=== PATIENT | male | born 1980 | race Caucasian/White ===

== ENCOUNTER 2016-07-16 11:15 | Inpatient (IN) | payer MEDICARE, OTHER ==
[~2016-07-16] VITALS: Ht 177.8 cm; Wt 89.4 kg
[~2016-07-16 11:15] MED LIST: CEPH500C PO; INVEGA SUSTENNA IM; PARO20TA PO
[2016-07-16 12:02] VITALS: BP 182/88; PULSE 125; RESP 20; TEMP 97.7; O2SAT 99
[2016-07-16] MEDS ORDERED: LORazepam 1 MG TAB PO ONE (12:15)
[2016-07-16 12:18] LABS: BASOPHIL # 0.1 TH/MM3 (0-0.2); BASOPHIL % 0.8 % (0.0-2.0); EOSINOPHIL # 0.1 TH/MM3 (0-0.4); EOSINOPHIL % 0.7 % (0.0-4.0); HEMATOCRIT 45.9 % (39.0-51.0); HEMO FLAGS DIFF FINAL; LYMPH % 16.5 % (9.0-44.0); LYMPHOCYTE # 1.3 TH/MM3 (1.0-4.8); MEAN CELL VOLUME 87.3 FL (80.0-100.0); MEAN CORPUSCULAR HEMOGLOBIN 30.6 PG (27.0-34.0); MONO % 6.6 % (0.0-8.0); NEUT % 75.4 % (16.0-70.0); PLATELET COUNT 241 TH/MM3 (150-450); RED BLOOD COUNT 5.25 MIL/MM3 (4.50-5.90); WHITE BLOOD COUNT 7.9 TH/MM3 (4.0-11.0)
[2016-07-16 12:23] LABS: AMPHETAMINE, URINE NEG (NEG); BARBITURATES, URINE NEG (NEG); COCAINE, URINE NEG (NEG)
--- NOTE | 2016-07-16 12:29 | PD ---
HPI Chief Complaint: Psychiatric Symptoms Time Seen by Provider: 12:25 Travel History International Travel<30 days: No Contact w/Intl Traveler<30days: No Traveled to known affect area: No History of Present Illness HPI 36-year-old male that presents to the ED for evaluation of psychiatric illness. Patient was Cotter acted by police after apparently his been making suicidal statements and acting bizarre patient during my examination is very tearful. Per patient he suffered a history of "busted". Unclear as to why. Per patient he believes that he's been doing some "illegal stuff". Unclear as to what. He does appear to be very anxious. He does have a history of schizoaffective disorder and states that his been compliant with his medications but does seem to be not working. Per patient she's not been sleeping because of the concern that he might be busted. Per patient she's been smoking marijuana but believes that that might be something else and that as he is concerned that he might be getting another illegal drugs. He denies any IV drug abuse. He denies any chest pain or shortness of breath. No abdominal pain. No medical problems. Patient follows with psychiatrist. Symptoms appear to be mother. Appear to be worsening for the past couple weeks. Patient does appear to be very anxious and history is somewhat limited because of his anxiety at this time. PFSH Past Medical History Bipolar Disorder: Yes Anxiety: Yes Depression: Yes High Cholesterol: Yes Diabetes: No Diminished Hearing: No Hypertension: Yes Psychiatric: Yes (schizoaffective d/o) Immunizations Current: No (patient states 'I never get vaccines") Radiation Therapy: No Schizophrenia: Yes (SCHIZO/AFFECTIVE D/O) Triglycerides - High: Yes Past Surgical History Appendectomy: Yes (2009) Genitourinary Surgery: Yes (VASECTOMY 01/2008) Oral Surgery: Yes (WISDOM) Other Surgery: Yes (wisdom teeth removed) Social History Alcohol Use: Yes (Patient states that he has been sober for one month) Tobacco Use: Yes (2 packs a day) Substance Use: Yes (Polysubstance abuse; sober one month) Allergies-Medications (Allergen,Severity, Reaction): Coded Allergies: Adhesives (Verified Allergy, Intermediate, RASH, 07/16/16) Uncoded Allergies: ANTIHITIMINES (Allergy, Severe, SOB, 07/27/11) Reported Meds & Prescriptions Reported Meds & Active Scripts Active Cephalexin 500 Mg Cap 500 Mg PO TID Reported Paroxetine Hcl 20 Mg Tab 20 Mg PO DAILY [Invega Sustenna] IM MONTHLY Review of Systems ROS Limitations: Poor Historian Except as stated in HPI: all other systems reviewed are Neg Physical Exam Exam Limitations: Poor Historian Narrative GENERAL: SKIN: Warm and dry. HEAD: Atraumatic. Normocephalic. EYES: Pupils equal and round. No scleral icterus. No injection or drainage. ENT: No nasal bleeding or discharge. Mucous membranes pink and moist. Tongue is midline. No uvula deviation. NECK: Trachea midline. No JVD. CARDIOVASCULAR: Regular rate and rhythm. No murmurs, S3, S4. RESPIRATORY: No accessory muscle use. Clear to auscultation. Breath sounds equal bilaterally. GASTROINTESTINAL: Abdomen soft, non-tender, nondistended. Hepatic and splenic margins not palpable. MUSCULOSKELETAL: Extremities without clubbing, cyanosis, or edema. No obvious deformities. Full range of motion of the upper and lower extremities bilaterally. 2+ pulses bilaterally. NEUROLOGICAL: Awake and alert. No obvious cranial nerve deficits. Motor grossly within normal limits. Five out of 5 muscle strength in the arms and legs. Normal speech. PSYCHIATRIC: Very anxious and possibly paranoid mood and affect; insight and judgment normal. Data Data Last Documented VS Vital Signs Date Time Temp Pulse Resp B/P Pulse Ox O2 Delivery O2 Flow Rate FiO2 07/16/16 12:02 97.7 125 20 182/88 99 Orders Complete Blood Count With Diff (07/16/16 11:42) Comprehensive Metabolic Panel (07/16/16 11:42) Psych Screen (07/16/16 11:42) Drug Screen, Random Urine (07/16/16 11:42) Alcohol (Ethanol) (07/16/16 11:42) Salicylates (Aspirin) (07/16/16 11:42) Tylenol (Acetaminophen) (07/16/16 11:42) Lorazepam (Ativan) (07/16/16 12:15) Labs Laboratory Tests Test 07/16/16 12:02 White Blood Count 7.9 TH/MM3 Red Blood Count 5.25 MIL/MM3 Hemoglobin 16.1 GM/DL Hematocrit 45.9 % Mean Corpuscular Volume 87.3 FL Mean Corpuscular Hemoglobin 30.6 PG Mean Corpuscular Hemoglobin 35.0 % Concent Red Cell Distribution Width 12.0 % Platelet Count 241 TH/MM3 Mean Platelet Volume 8.5 FL Neutrophils (%) (Auto) 75.4 % Lymphocytes (%) (Auto) 16.5 % Monocytes (%) (Auto) 6.6 % Eosinophils (%) (Auto) 0.7 % Basophils (%) (Auto) 0.8 % Neutrophils # (Auto) 6.0 TH/MM3 Lymphocytes # (Auto) 1.3 TH/MM3 Monocytes # (Auto) 0.5 TH/MM3 Eosinophils # (Auto) 0.1 TH/MM3 Basophils # (Auto) 0.1 TH/MM3 CBC Comment DIFF FINAL Differential Comment Urine Opiates Screen NEG Urine Barbiturates Screen NEG Urine Amphetamines Screen NEG Urine Benzodiazepines Screen NEG Urine Cocaine Screen NEG Urine Cannabinoids Screen POS MDM Medical Decision Making Medical Screen Exam Complete: Yes Emergency Medical Condition: Yes Medical Record Reviewed: Yes Interpretation(s) CBC Diagram 07/16/16 12:02 tox screen positive for cannabinoids Differential Diagnosis Depression versus suicidal ideation versus anxiety versus adjustment disorder versus mood disorder versus bipolar disorder versus schizophrenia versus paranoid disorder versus psychosis versus substance abuse versus alcohol abuse versus alcohol induced psychosis versus homicidality addition versus cutting versus personality disorder Narrative Course 36-year-old male that presents to the ED for evaluation of psych. Patient was properly examined and was found to have signs and symptoms consistent appears to be psychiatric illness. No sign of acute medical distress. At this time labs recommended. Patient will be medically clear. Okay to be seen by psych. Mental health screening was discussed with the patient. Diagnosis Primary Impression: Schizoaffective disorder, bipolar type Bart Hammond Jul 16, 2016 12:29
[2016-07-16 12:36] LABS: ALKALINE PHOSPHATASE 68 U/L (45-117); TOTAL BILIRUBIN ADULT 0.6 MG/DL (0.2-1.0)
[2016-07-16 12:41] LABS: ACETAMINOPHEN LESS THAN 2.0 MCG/ML (10.0-30.0); ALT (GPT) 35 U/L (12-78); ANION GAP 11 MEQ/L (5-15); AST (GOT) 19 U/L (15-37); BICARBONATE 22.6 MEQ/L (21.0-32.0); BLOOD UREA NITROGEN 8 MG/DL (7-18); CHLORIDE 103 MEQ/L (98-107); GLOMERULAR FILTRATION RATE 98 ML/MIN (>89); POTASSIUM 3.6 MEQ/L (3.5-5.1); SODIUM (NA) 137 MEQ/L (136-145)
[2016-07-16] MEDS ORDERED: PARO30TA2 PO (13:48)
[2016-07-16 14:59] VITALS: BP 137/86; PULSE 104; RESP 16; O2SAT 97
[2016-07-16 18:22] VITALS: BP 132/72; PULSE 88; RESP 17; O2SAT 98
[2016-07-16] MEDS ORDERED: PALI1.75 IM (18:39)
[2016-07-16 22:35] VITALS: BP 126/64; PULSE 95; RESP 18; O2SAT 98
[2016-07-17 02:24] VITALS: BP 115/63; PULSE 61; RESP 18; O2SAT 98
[2016-07-17] MEDS ORDERED: diphenhydrAMINE HCL 50 MG/ML VIAL IM PRN (06:15)
[2016-07-17] MEDS ORDERED: diphenhydrAMINE HCL 50 MG CAP PO PRN ×2 (06:15→14:30)
[2016-07-17] MEDS ORDERED: PILL SPLITTER OTHER PRN (06:15)
[2016-07-17] MEDS ORDERED: MAGNESIUM HYDROXIDE SUSP 30 ML CUP PO PRN (06:15)
[2016-07-17] MEDS ORDERED: ALUMINUM/MAGNESIUM/SIMETH 30 ML CUP PO PRN (06:15)
[2016-07-17] MEDS ORDERED: LORazepam 2 MG/ML VIAL IM PRN (06:15)
[2016-07-17] MEDS ORDERED: ACETAMINOPHEN 325 MG TAB PO PRN (06:15)
[2016-07-17] MEDS ORDERED: traZODone HCL 50 MG TAB PO PRN (06:15)
[2016-07-17 06:33] VITALS: BP 174/98; PULSE 86; RESP 18; TEMP 98; O2SAT 96
[2016-07-17] MEDS: NICOTINE 21 MG/24 HR PATCH T-DERMAL SCH (08:19)
[2016-07-17] MEDS: LORazepam 1 MG TAB PO PRN ×2 (10:39→17:09)
[2016-07-17] MEDS: PARoxetine HCL 20 MG TAB PO SCH (10:40)
--- NOTE | 2016-07-17 13:02 | HHI.HP ---
Provisional Diagnosis Admission Date Jul 17, 2016 at 05:55 [place] I. 1. Schizoaffective disorder, other type 2. Cannabis abuse Bah[place] II. Deferred [place] V. GAF is 30 presently Certification of Person's Competence To Provide Express and Informed Consent I have personally examined Julian Mcconnell , a person being served at [facility] on, Jul 17, 2016 13:02. Express and informed consent means consent voluntarily given in writing, by a competent person, after sufficient explanation and disclosure of the subject matter involved to enable the person to make a knowing and willful decision without any element of force, fraud, deceit, duress, or other form of constraint or coercion. This person is 18 years of age or older, is not now known to be incompetent to consent to treatment with a guardian advocate, and does not have a health care surrogate or proxy currently making medical treatment decisions. I have found this person to be one of the following: [x] Competent to provide express and informed consent, as defined above, for voluntary admission to this facility and is competent to provide express and informed consent for treatment. He/she has the consistent capacity to make well reasoned, willful, and knowing decisions concerning his or her medical or mental health treatment. The person fully and consistently understands the purpose of the admission for examination/placement and is fully capable of personally exercising all rights assured under [place] [] Incompetent to provide express and informed consent to voluntary admission, and this is incompetent to provide express and informed consent to treatment. The person must be transferred to involuntary status and a petition for a guardian advocate filed with the Circuit Court. [] Refusing to provide express and informed consent to voluntary admission but is competent to provide express and informed consent for treatment. The person must be discharged or transferred to involuntary status. Form shall be completed within 24 hours of a person's arrival at the receiving facility and filed in the clinical record of each person: 1. Admitted on a voluntary basis 2. Permitted to provide express and informed consent to his/her own treatment 3. Allowed to transfer from involuntary to voluntary status 4. Prior to permitting a person to consent to his or her own treatment after having been previously found incompetent to consent to treatment. History of Present Illness Capacity: Has Capacity HPI Mr. Mcconnell is a 36-year-old male with a reported history of schizoaffective disorder who presents to us under a Cotter act alleging that the patient went to the [facility] office and threatened suicide by [place] the [place]. Cotter act further alleges that the patient believes that he was being pursued by the [employer] and was being monitored by satellites. Reviewing the electronic medical record, I note the patient was admitted most recently under Dr. Vaughan in 2010 following an aspirin overdose. Patient seen and examined with nursing staff. Chart reviewed. Case discussed with nurse on the inpatient psychiatric unit. On my examination today, the patient presents as an intelligent and cogent historian. He says that he has been feeling increasingly depressed over the last year or so and has been contemplating suicide by jumping off the [place] within the span of the last few weeks. He endorses associated feelings of hopelessness. He feels trapped because he believes he is being pursued by law enforcement for a reported history of minor drug offences. He believes that staff and patients on the unit may be planted by law enforcement to monitor him. He is glad that he didn' t go through with his suicide plan but continues to voice ideation towards jumping off the [place] bridge. He also notes that he does not trust the FACT team , "because I believe my step-father's new is the leader of the FACT team." He also believes that FACT workers are colluding with law enforcement. No reported AVH or CAH at this time. He denies homicidal ideation, including against those he perceives as pursuing him, saying he would rather do himself in instead. No hypomanic/manic symptoms. The remainder of the psychiatric ROS is negative. Patient has produced an 8 page document articulating his belief that "I am being targeted and tracked by senior officials under direct supervision of the [place]...under direct supervision of the delivery crew member of [place], Glen Herrera." He says that he was made aware of this fact through the internet and consequently "would like to relocate and delete/deactivate all advanced technological devices and lead a simple life." Past psychiatric history: Patient reports a history of schizoaffective disorder. He is followed by Dr. Cazares at [facility]. His most recent psychiatric admission was here at [facility] following his aspirin overdose. He is currently prescribed Paxil 30 mg daily and Invega Trinza 819mg, which he received last week. Patient reports poor responses in the past to Thorazine and Haldol but says that he has done well with loxapine. Family history: Patient reports bipolar disorder and an uncle. No reported family history of suicide. Chemical dependency history: Patient reports chronic use of cannabis. He denies other substance use. Patient feels like the cannabis is helpful for his symptomatology and says that he felt worse when he discontinued it about a week ago. He is able to speak quite intelligently about cannabis use, highlighting the different effects of THC versus CBD for example. Social history: Patient reports that he was raised by his mother and stepfather. He is himself and has no children. He is on disability. He endorses a history of drug crime but denies any history of violent crime. Review of Systems ROS Limitations: Psychotic Other Patient endorses left shoulder pain and diffuse abdominal discomfort without associated bowel symptoms reported. No headache, vision or hearing changes, chest pain, shortness of breath, bladder issues. No other physical complaints. Past Psych History Psychological trauma history No reported trauma history to md Violence risk - others (6 mos) Indeterminate. Patient is paranoid and believes that other people are in cahoots with law enforcement, and this could be a risk factor for violence against these people, although the patient says that he would rather hurt himself to avoid capture them to hurt others. Violence risk - self (6 mos) Elevated. See above. Substance Abuse History Drugs/Alcohol past 12 months See above Past Family Social History Coded Allergies: Adhesives (Verified Allergy, Intermediate, RASH, 07/16/16) Uncoded Allergies: ANTIHITIMINES (Allergy, Severe, SOB, 07/27/11) Past Medical History See electronic medical record Active Scripts Cephalexin 500 Mg [id number] Mg PO TID #21 CAP Ref 0 Prov:Deneen Gayle MD 07/02/16 Reported Medications Paliperidone Palmitate Inj (Invega Trinza Inj)819 Mg/2.625 Ml Rum162 Mg IM Q90D #1 VIAL Ref 0 07/16/16 Paroxetine 30 Mg Tab30 Mg PO DAILY #30 TAB Ref 0 07/16/16 Current Medications Medications (Trade) Dose Ordered Sig/Cyrus Route Start Time Stop Time Status Last Admin (Ativan) 1 mg Q6H PRN PO 07/17/16 06:15 07/17/16 10:39 (Ativan Inj) 1 mg Q6H PRN IM 07/17/16 06:15 (Benadryl) 50 mg Q6H PRN PO 07/17/16 06:15 (Benadryl Inj) 50 mg Q6H PRN IM 07/17/16 06:15 (Desyrel) 50 mg HS PRN PO 07/17/16 06:15 (Tylenol) 650 mg Q4H PRN PO 07/17/16 06:15 (Milk Of Magnesia Liq) 30 ml DAILY PRN PO 07/17/16 06:15 (Mag-Al Plus Susp Liq) 30 ml Q6H PRN PO 07/17/16 06:15 (Habitrol 21 Mg Patch.24 Hr) 1 patch DAILY T-DERMAL 07/17/16 09:00 Miscellaneous Information 1 HS T-DERMAL 07/17/16 21:00 (Paxil) 30 mg DAILY PO 07/17/16 09:00 07/17/16 10:40 (Pill Splitter) 1 ea UNSCH PRN OTHER 07/17/16 06:15 Family History See above Social History See above Patient's Strengths (min. 2) In a monitored setting. Verbally fluent. Physical Exam Physical examination completed by ED provider. On my examination today, patient appears to be in no acute physical distress. He is well-nourished and well-developed. No abnormal motor movements noted. Labs and vital signs reviewed: Vital Signs Vital Signs Date Time Temp Pulse Resp B/P Pulse Ox O2 Delivery O2 Flow Rate FiO2 07/17/16 06:33 98.0 86 18 174/98 96 07/17/16 02:24 Room Air Lab Results Item Value Date Time White Blood Count 7.9 TH/MM3 07/16/16 1202 Hemoglobin 16.1 GM/DL 07/16/16 1202 Platelet Count 241 TH/MM3 07/16/16 1202 Sodium Level 137 MEQ/L 07/16/16 1202 Potassium Level 3.6 MEQ/L 07/16/16 1202 Chloride Level 103 MEQ/L 07/16/16 1202 Carbon Dioxide Level 22.6 MEQ/L 07/16/16 1202 Blood Urea Nitrogen 8 MG/DL 07/16/16 1202 Creatinine 0.88 MG/DL 07/16/16 1202 Aspartate Amino Transf (AST/SGOT) 19 U/L 07/16/16 1202 Alanine Aminotransferase (ALT/SGPT) 35 U/L 07/16/16 1202 Alkaline Phosphatase 68 U/L 07/16/16 1202 Urine Cannabinoids Screen POS H 07/16/16 1202 Ethyl Alcohol Level LESS THAN 3 MG/DL 07/16/16 1202 Mental Status Examination Patient is casually dressed. He is well groomed. He is awake and alert and oriented 3. No abnormal motor movements noted. Speech is within normal limits for rate, tone and volume. Language and fund of knowledge seem above average. Mood is depressed and affect is blunted. Thought process linear within delusional system. No loosening of associations. Systematized paranoid delusions are present. No audiovisual hallucinations. Ongoing suicidal ideation with plan to jump [place] of the [place]. Denies homicidal ideation. Insight and judgment are fair at best. Assessment & Plan Problem List: (1) Schizoaffective disorder ICD Code: F25.9 (2) Cannabis abuse ICD Code: F12.10 Assessment & Plan This is a 36-year-old male with psychiatric history as detailed above who presents under a Cotter act. On my examination today, the patient describes elaborate, systematized paranoid delusions of being pursued by law enforcement and the government. He unfortunately has come to believe that his outpatient mental health providers are in collusion with these agencies against him. He has grown increasingly depressed and suicidal in the context of these beliefs. He is presently receiving long-acting injectable paliperidone as well as Paxil for management of his symptoms and he reports a good response to loxapine in the past. Patient requires psychiatric hospitalization at this time for safety , observation and stabilization. Admit inpatient. Voluntary status. Continue Paxil 30 mg daily with plans to titrate if needed for mood. Add loxapine 5 mg twice daily to augment the effect of his Invega with plans to titrate to effect. Ativan as needed for anxiety, Benadryl as needed for EPS or sleep. Consult to the hospitalist for patient's complaints of shoulder and abdominal pain. Vitals every shift. Counselor to see. Disposition planning. Estimated length of stay: 7-9 days. Discharge Planning Pending psychiatric stabilization Request HC Surrog/Guard Advoc?: No Problem Qualifiers (1) Schizoaffective disorder: Qualified Code: F25.8 - Other schizoaffective disorders Rj Padron MD Jul 17, 2016 13:02
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
[2016-07-17] MEDS ORDERED: cloNIDine HCL 0.1 MG TAB PO PRN (17:00)
[2016-07-17] MEDS: LISINOPRIL 20 MG TAB PO SCH (17:15)
[2016-07-17 18:09] VITALS: BP 162/87; PULSE 83; RESP 18; TEMP 97.3; O2SAT 97
[2016-07-17] MEDS: LOXAPINE 5 MG CAP PO SCH (20:46)
[2016-07-17] MEDS: REMOVE OLD NICOTINE PATCH T-DERMAL SCH (21:00)
[2016-07-18] MEDS: ACETAMINOPHEN 325 MG TAB PO PRN ×2 (06:14→08:15)
[2016-07-18 06:17] VITALS: BP 118/61; PULSE 89; RESP 18; TEMP 98; O2SAT 97
[2016-07-18 08:11] LABS: ANION GAP 8 MEQ/L (5-15); BICARBONATE 26.9 MEQ/L (21.0-32.0); BLOOD UREA NITROGEN 10 MG/DL (7-18); CHLORIDE 103 MEQ/L (98-107); GLOMERULAR FILTRATION RATE 98 ML/MIN (>89); HDL CHOLESTEROL 38.2 MG/DL (40.0-60.0); LDL CHOLESTEROL 106 MG/DL (0-99); POTASSIUM 3.9 MEQ/L (3.5-5.1); SODIUM (NA) 138 MEQ/L (136-145)
[2016-07-18] MEDS: NICOTINE 21 MG/24 HR PATCH T-DERMAL SCH (08:30)
[2016-07-18] MEDS: LISINOPRIL 20 MG TAB PO SCH (09:00)
[2016-07-18] MEDS: PARoxetine HCL 20 MG TAB PO SCH (09:39)
[2016-07-18] MEDS: LOXAPINE 5 MG CAP PO SCH ×3 (09:39→20:25)
--- NOTE | 2016-07-18 10:47 | HHI.PYPN ---
Subjective Remarks Patient seen and examined with counselor and nurse. Chart reviewed. Case discussed with counselor and nurse. Per nursing staff, patient has been no behavioral problem. On my examination today the patient is somewhat somatically preoccupied. He complains of mild left-sided headache and left- sided weakness, although he has no objective weakness, see below. Patient continues to feel like he is being monitored on the inpatient unit, although as it happens he is in one of the few non-camera rooms on the unit. He believes that "there are people associated with the telephone and [employer] [ after him]. I believe myself and my mother are under Federal investigation." He continues to believe that some staff and patients on the unit are colluding with his pursuers, and the patient says he can tell which ones are in on it "because of their clothing. The ones in darker colors are working with local law enforcement and investigating the ones in wood panel inspector clothes." Happy to be on loxapine, reiterates history of good response to this med. Denies side effects from medications. Review of Systems ROS Limitations: Psychotic Except as stated in HPI: all other systems reviewed are Neg Objective Alert: Yes [place]: Person, Place, Date, Situation Mood: Anxious Affect: Blunted Memory Intact: Comment (Intact on clinical exam) Hallucinations: Other (No AVH) Delusions: Yes Delusion Type: Paranoid Suicidal: Ideation (No SI) Homicidal: Ideation (No HI) Insight/Judgement Fair at best Remarks No motor abnormalities noted. In particular no UE or LE weakness. No facial muscle palsy. Speech wnl for rate, tone, volume. TP linear within delusional system. Labs Test 07/18/16 07:10 Sodium Level 138 MEQ/L Potassium Level 3.9 MEQ/L Chloride Level 103 MEQ/L Carbon Dioxide Level 26.9 MEQ/L Anion Gap 8 MEQ/L Blood Urea Nitrogen 10 MG/DL Creatinine 0.88 MG/DL Estimat Glomerular Filtration 98 ML/MIN Rate Random Glucose 99 MG/DL Calcium Level 9.1 MG/DL Triglycerides Level 173 MG/DL Cholesterol Level 179 MG/DL LDL Cholesterol 106 MG/DL HDL Cholesterol 38.2 MG/DL Cholesterol/HDL Ratio 4.68 RATIO Labs reviewed. Repeat BMP unremarkable. Lipid panel noted. Hemoglobin A1c pending. Vitals/IOs Vital Signs Date Time Temp Pulse Resp B/P Pulse Ox O2 Delivery O2 Flow Rate FiO2 07/18/16 06:17 98.0 89 18 118/61 97 07/17/16 02:24 Room Air Assessment & Plan Problem List: (1) Schizoaffective disorder ICD Code: F25.9 (2) Cannabis abuse ICD Code: F12.10 Assessment & Plan Titrate loxapine to 5 mg 3 times daily to target psychosis. Continue Paxil as ordered. Ramesh Zelaya on board. Case discussed briefly with the hospitalist outside solar sales consultant who will evaluate the patient. Continue to monitor on the inpatient unit. Continue other medications and care as ordered. Justification for Cont. Inpt. Impairment in reality construction. Medication changes in process. High risk for decompensation in a less restrictive environment pending psychiatric stabilization. Discharge Planning Pending psychiatric stabilization. Request HC Surrog/Guard Advoc?: No Problem Qualifiers (1) Schizoaffective disorder: Qualified Code: F25.8 - Other schizoaffective disorders Rj Padron MD Jul 18, 2016 10:47
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
[2016-07-18 15:41] LABS: HEMOGLOBIN A1a 0.7 %; HEMOGLOBIN A1b 1.1 %; HEMOGLOBIN F 0.8 %; HEMOGLOBIN LA1C 1.8 %; HEMOGLOBIN P3 3.3 %
[2016-07-18] MEDS: LORazepam 1 MG TAB PO PRN (17:22)
[2016-07-18 18:38] VITALS: BP 128/80; PULSE 93; RESP 17; TEMP 98.4; O2SAT 98
[2016-07-18] MEDS: REMOVE OLD NICOTINE PATCH T-DERMAL SCH (20:26)
[2016-07-19 06:13] VITALS: BP 161/70; PULSE 88; RESP 17; TEMP 98.1; O2SAT 97
[2016-07-19] MEDS: LOXAPINE 5 MG CAP PO SCH ×3 (08:56→21:00)
[2016-07-19] MEDS: PARoxetine HCL 20 MG TAB PO SCH (08:56)
[2016-07-19] MEDS: LISINOPRIL 20 MG TAB PO SCH (08:56)
--- NOTE | 2016-07-19 12:06 | HHI.PYPN ---
Subjective Remarks Patient seen and examined with counselor. Chart reviewed. Case discussed with nursing staff reports the patient has been somewhat paranoid and says that he is acting in the role of an security investigator on the unit. On my examination today the patient says "I want my meds to get straightened out. I have concerns about privacy and breaches in privacy. This is related to political transition , and I no there are different privacy laws." Patient remains convinced that he is being surreptitiously monitored by law enforcement but says "even if I was , it's for my own good." He says that he is willing to follow-up at [facility] generally but remains paranoid about the FACT team. Denies side effects from medications. Agreeable to titrating his loxapine over the weekend. Complains of some chronic neck stiffness without associated symptoms. Review of Systems ROS Limitations: Psychotic Except as stated in HPI: all other systems reviewed are Neg Objective Alert: Yes [place]: Person, Place, Date, Situation Mood: Other (calmer today) Affect: Blunted Memory Intact: Comment (Intact on clinical exam) Hallucinations: Other (none) Delusions: Yes Delusion Type: Paranoid (Patient has systematized delusions of being monitored and pursued by various government agencies. This is perhaps beginning to soften somewhat.) Suicidal: Ideation (No SI) Homicidal: Ideation (No HI) Insight/Judgement Fair Remarks No hand tremor, no cogwheeling, no dystonia, no dyskinesia. Thought process linear within delusional system. Speech within normal limits for rate, tone and volume. Grooming and hygiene are good. Labs Labs reviewed. No new labs. Vitals/IOs Vital Signs Date Time Temp Pulse Resp B/P Pulse Ox O2 Delivery O2 Flow Rate FiO2 07/19/16 06:13 98.1 88 17 161/70 97 07/17/16 02:24 Room Air Intake and Output 07/18/16 07/18/16 07/19/16 08:00 16:00 00:00 Intake Total 360 ml Balance 360 ml Assessment & Plan Problem List: (1) Schizoaffective disorder ICD Code: F25.9 (2) Cannabis abuse ICD Code: F12.10 Assessment & Plan Continue loxapine as ordered with plans to titrate to 10 mg twice daily tomorrow. This is augmenting long-acting paliperidone. Continue Paxil as ordered. I will request physical therapy to see the patient for his complaints of shoulder and neck discomfort. Hospitalist consult input noted and appreciated. Continue to monitor on the inpatient unit. Continue other medications and care as ordered. Justification for Cont. Inpt. Impairment in reality construction, perhaps beginning to improve somewhat. Medication changes planned. Risk for decompensation in a less restrictive setting pending psychiatric stabilization. Discharge Planning Pending psychiatric stabilization. Request HC Surrog/Guard Advoc?: No Problem Qualifiers (1) Schizoaffective disorder: Qualified Code: F25.8 - Other schizoaffective disorders Rj Padron MD Jul 19, 2016 12:06
[2016-07-19] MEDS: LORazepam 1 MG TAB PO PRN ×2 (12:22→13:01)
[2016-07-20] MEDS: IBUPROFEN 400 MG TAB PO PRN (05:24)
[2016-07-20 06:07] VITALS: BP 136/93; PULSE 95; RESP 18; TEMP 97.4; O2SAT 97
[2016-07-20] MEDS: LOXAPINE 5 MG CAP PO SCH ×3 (09:00→20:23)
[2016-07-20] MEDS: PARoxetine HCL 20 MG TAB PO SCH (09:08)
[2016-07-20] MEDS: LISINOPRIL 20 MG TAB PO SCH (09:08)
--- NOTE | 2016-07-20 11:45 | HHI.FPPN ---
Subjective Remarks Patient seen this morning. No acute events overnight. Vitals WNL this AM. Patient has no complaints this AM. Denies any CASTILLO, pain in extremities, CP, SOB, or F/C. (Jaciel Squires MD R3) Objective Vitals Vital Signs Date Time Temp Pulse Resp B/P Pulse Ox O2 Delivery O2 Flow Rate FiO2 07/20/16 06:07 97.4 95 18 136/93 97 (Jaciel Squires MD R3) Result Diagram: 07/16/16 1202 07/18/16 0710 Objective Remarks GENERAL: This is a well-nourished, well-developed patient, in no apparent distress except for concern about somatic sxs SKIN: No rashes, ecchymoses or lesions. Cool and dry. CARDIOVASCULAR: Regular rate and rhythm without murmurs, gallops, or rubs. RESPIRATORY: Clear to auscultation. Breath sounds equal bilaterally. No wheezes , rales, or rhonchi. GASTROINTESTINAL: Abdomen soft, non-tender, nondistended. No hepato-splenomegaly , or palpable masses. No guarding. MUSCULOSKELETAL: Extremities without clubbing, cyanosis, or edema. Mild tenderness to palpation of the left anterior shoulder joint. No calf tenderness. Negative Homans sign bilaterally. NEUROLOGICAL: Awake and alert. Cranial nerves II through XII intact. Motor and sensory grossly within normal limits. Five out of 5 muscle strength in all muscle groups. Normal speech. SKIN: no infections seen. well healed areas of former wounds pointed out by pt on arms and scattered (Jaciel Squires MD R3) A/P Assessment and Plan This is a 36-year-old male with a past medical history significant for schizoaffective disorder, hypertension, and dyslipidemia admitted for suicidal ideation and delusions. Consulted to evaluate left shoulder pain and manage chronic illness i.e. hypertension. Discharge Planning Per psychiatry (Jaciel Squires MD R3) Attending Attestation Patient seen and examined. Case reviewed and discussed with the resident team. Agree with plan of care as discussed with me and documented in the resident note. (Penyn Vizcaino MD) Problem List: (1) Schizoaffective disorder Status: Acute Plan: Deferred to psychiatric team (2) HTN (hypertension) Status: Acute Plan: Well controlled. BP mostly WNL. Patient has a long-standing history of hypertension. * Lisinopril 20 mg daily (3) Shoulder pain Status: Acute Plan: Shoulder pain is likely an old injury. Recommended physical therapy once he recovers from this active psychiatric illness. * PRN motrin (4) Headache Status: Acute Plan: Well controlled. No issues at this time. Continue PRN motrin. (Jaciel Squires MD R3) Problem Qualifiers (1) Schizoaffective disorder: Qualified Code: F25.8 - Other schizoaffective disorders (2) HTN (hypertension): Qualified Code: I10 - Essential hypertension (3) Shoulder pain: Qualified Code: M25.512 - Chronic left shoulder pain (4) Headache: Qualified Code: R51 - Acute nonintractable headache, unspecified headache type Jaciel Squires MD R3 Jul 20, 2016 11:45 Penny Vizcaino MD Jul 22, 2016 15:13
--- NOTE | 2016-07-20 13:41 | HHI.PYPN ---
Subjective Remarks Patient seen and examined. Chart reviewed. Case discussed with nursing staff who reports that the patient has been somewhat tearful and ambivalent. On my examination today, the patient does indeed seem to be struggling with whether to stay or leave the hospital. This ambivalence seems to have its basis in his belief that people on the unit RN collusion with the government. However, he continues to say that if they are monitoring him, it's only for his best interest. He makes odd statements about being "willing to sign anything" and that he is "not going to go to a child care" although he reports the care he has received on the unit has been very good. It is unclear what he is worried about here, and he seems to struggle putting it into words. I have offered to transfer him to the lower acuity unit where he might be more comfortable, but the patient seems to be even more paranoid about the lower acuity unit. He finally agrees to remain on the unit for additional stabilization. Review of Systems ROS Limitations: Poor Historian Except as stated in HPI: all other systems reviewed are Neg Objective Alert: Yes [place]: Person, Place, Date, Situation Mood: Anxious Affect: Blunted (remains a little blunted) Memory Intact: Comment (Intact on clinical exam) Hallucinations: Other (none) Delusions: Yes Delusion Type: Paranoid (ongoing systematized delusions as before.) Suicidal: Ideation (No SI) Homicidal: Ideation (No HI) Insight/Judgement fair Remarks Thought process linear within delusional system. Speech within normal limits for rate, tone and volume. No motoric abnormalities noted. Labs Labs reviewed. No new labs. Vitals/IOs Vital Signs Date Time Temp Pulse Resp B/P Pulse Ox O2 Delivery O2 Flow Rate FiO2 07/20/16 06:07 97.4 95 18 136/93 97 07/17/16 02:24 Room Air Assessment & Plan Problem List: (1) Schizoaffective disorder ICD Code: F25.9 (2) Cannabis abuse ICD Code: F12.10 Assessment & Plan Titrate loxapine to 10 mg twice daily augmenting long-acting paliperidone. Continue Paxil. Continue to monitor on the inpatient unit. Continue other medications and care as ordered. Justification for Cont. Inpt. Impairment in reality construction. Medication changes and process. High risk for decompensation in a less restrictive environment. Discharge Planning Pending psychiatric stabilization. My hope is that the patient will improve over the weekend and be ready for discharge beginning of next week. Request HC Surrog/Guard Advoc?: No Problem Qualifiers (1) Schizoaffective disorder: Qualified Code: F25.8 - Other schizoaffective disorders Rj Padron MD Jul 20, 2016 13:41
[2016-07-20 17:00] VITALS: BP 148/81; PULSE 97; RESP 18; TEMP 97.6
[2016-07-20] MEDS: LORazepam 1 MG TAB PO PRN (22:12)
[2016-07-21] MEDS: IBUPROFEN 400 MG TAB PO PRN (06:30)
[2016-07-21 06:39] VITALS: BP 122/70; PULSE 99; RESP 18; TEMP 97.2; O2SAT 97
[2016-07-21] MEDS: LISINOPRIL 20 MG TAB PO SCH (09:00)
[2016-07-21] MEDS: LOXAPINE 5 MG CAP PO SCH ×2 (09:37→20:01)
[2016-07-21] MEDS: PARoxetine HCL 20 MG TAB PO SCH (09:37)
[2016-07-21] MEDS: LORazepam 1 MG TAB PO PRN ×2 (11:59→20:01)
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
[2016-07-21 17:28] VITALS: BP 128/88; PULSE 101; RESP 19; TEMP 98.6; O2SAT 97
[2016-07-21] MEDS: IBUPROFEN 600 MG TAB PO PRN (20:01)
[2016-07-22 05:55] VITALS: BP 132/83; PULSE 86; RESP 16; TEMP 97.3; O2SAT 96
[2016-07-22] MEDS: LOXAPINE 5 MG CAP PO SCH ×2 (09:30→21:00)
[2016-07-22] MEDS: PARoxetine HCL 20 MG TAB PO SCH (09:31)
[2016-07-22] MEDS: LISINOPRIL 20 MG TAB PO SCH (09:31)
--- NOTE | 2016-07-22 11:31 | HHI.FPPN ---
Subjective Remarks Patient seen this morning. There were no acute events overnight. Vitals this AM WNL. Patient does c/o mild eye dryness/irritation this AM. No matting or drainage. No change in vision. Does endorse h/o seasonal allergy. CASTILLO well controlled with motrin. No other complaints this AM. Objective Vitals Vital Signs Date Time Temp Pulse Resp B/P Pulse Ox O2 Delivery O2 Flow Rate FiO2 07/22/16 05:55 97.3 86 16 132/83 96 07/21/16 17:28 98.6 101 19 128/88 97 Result Diagram: 07/18/16 0710 Objective Remarks GENERAL: This is a well-nourished, well-developed patient, in no apparent distress except for concern about somatic sxs EYES: Pupils equal round and reactive. Extraocular motions intact. No scleral icterus. No injection or drainage. No matting. Fundi not examined. CARDIOVASCULAR: Regular rate and rhythm without murmurs, gallops, or rubs. RESPIRATORY: Clear to auscultation. Breath sounds equal bilaterally. No wheezes , rales, or rhonchi. GASTROINTESTINAL: Abdomen soft, non-tender, nondistended. No hepato-splenomegaly , or palpable masses. No guarding. A/P Assessment and Plan This is a 36-year-old male with a past medical history significant for schizoaffective disorder, hypertension, and dyslipidemia admitted for suicidal ideation and delusions. Consulted to evaluate left shoulder pain and manage chronic illness i.e. hypertension. Discharge Planning *We will sign off today. Please feel free to call us if any further medical issues. Thank you for allowing us to participate in this patient's care* Will discuss with Dr. Vizcaino. Problem List: (1) Schizoaffective disorder Status: Acute Plan: Deferred to psychiatric team (2) HTN (hypertension) Status: Acute Plan: Well controlled. BP mostly WNL. Patient has a long-standing history of hypertension. * Lisinopril 20 mg daily (3) Shoulder pain Status: Acute Plan: Shoulder pain is likely an old injury. Recommended physical therapy once he recovers from this active psychiatric illness. * PRN motrin (4) Eye dryness Status: Acute Plan: Likely 2/2 allergy. Will start with natural tears. (5) Headache Status: Acute Plan: Well controlled. No issues at this time. Continue PRN motrin. Problem Qualifiers (1) Schizoaffective disorder: Qualified Code: F25.8 - Other schizoaffective disorders (2) HTN (hypertension): Qualified Code: I10 - Essential hypertension (3) Shoulder pain: Qualified Code: M25.512 - Chronic left shoulder pain (4) Headache: Qualified Code: R51 - Acute nonintractable headache, unspecified headache type Jaciel Squires MD R3 Jul 22, 2016 11:31 (2) HTN (hypertension): Qualified Code: I10 - Essential hypertension (3) Shoulder pain: Qualified Code: M25.512 - Chronic left shoulder pain (4) Headache: Qualified Code: R51 - Acute nonintractable headache, unspecified headache type Jaciel Squires MD R3 Jul 22, 2016 11:31
--- NOTE | 2016-07-22 13:54 | HHI.PYPN ---
Subjective Remarks Pt seen and discussed with staff. He has been less agitated today, but is tearful and labile. Thought process is tangential. Delusions persist but he is less fixed on them today. No SI/HI Review of Systems Psychiatric: COMPLAINS OF: Mood changes, Delusions Objective Alert: Yes [place]: Person, Place, Date, Situation Mood: Anxious Affect: Labile Memory Intact: Comment (Intact on clinical exam) Hallucinations: Other (none) Delusions: Yes Delusion Type: Paranoid (ongoing systematized delusions, somatic delusions) Suicidal: Ideation (No SI) Homicidal: Ideation (No HI) Insight/Judgement poor Vitals/IOs Vital Signs Date Time Temp Pulse Resp B/P Pulse Ox O2 Delivery O2 Flow Rate FiO2 07/22/16 05:55 97.3 86 16 132/83 96 Assessment & Plan Problem List: (1) Schizoaffective disorder ICD Code: F25.9 (2) Cannabis abuse ICD Code: F12.10 Assessment & Plan Continue current tx plan. Estimated LOS: days Justification for Cont. Inpt. impairments in reality construction and social functioning Request HC Surrog/Guard Advoc?: No Problem Qualifiers (1) Schizoaffective disorder: Qualified Code: F25.8 - Other schizoaffective disorders Norma López MD Jul 22, 2016 13:53
[2016-07-22] MEDS: LORazepam 1 MG TAB PO PRN (17:02)
[2016-07-22 18:34] VITALS: BP 127/80; PULSE 81; RESP 16; TEMP 98.7; O2SAT 98
[2016-07-22] MEDS: CARBOXYMETHYLCELL SOD 0.5% OPTH SOLN 15 ML BTL EACH EYE PRN (21:02)
[2016-07-23] MEDS: IBUPROFEN 600 MG TAB PO PRN (04:24)
[2016-07-23 05:51] VITALS: BP 142/85; PULSE 101; TEMP 97.3; O2SAT 18
[2016-07-23] MEDS: LOXAPINE 5 MG CAP PO SCH ×2 (09:00→20:08)
[2016-07-23] MEDS: LISINOPRIL 20 MG TAB PO SCH (09:20)
[2016-07-23] MEDS: PARoxetine HCL 20 MG TAB PO SCH (09:21)
--- NOTE | 2016-07-23 11:04 | HHI.PYPN ---
Subjective Remarks Patient seen and examined with nurse. Chart reviewed. Case discussed with nursing staff. Patient reportedly remains somewhat paranoid and labile. On my examination today, the patient says that he is feeling a lot better and is glad to be alive. He is somewhat discharge focused. He does admit to feeling "a little depressed" but says that is because he is in the hospital. He is reportedly sleeping well. Denies SI, HI or AVH. Continues to have some paranoia regarding being monitored by agents from the government but continues to say "even if they were, it's for my own good." Denies side effects from medications. Had plan to discharge the patient today but received a message from a counselor from patient's outpatient case consultant with the FACT team. I gave patient's outpatient case consultant, Mr. Tran a call at [phone]. He reports that he had received a call from patient's parents who reportedly visited with the patient over the weekend and were concerned that he was not at his baseline. Mr. Tran notes that he is known the patient for over 10 years and says that he will come to the unit himself to evaluate whether the patient is close enough to baseline for safety discharge. I will hold patient's discharge until this can be completed. Review of Systems ROS Limitations: Psychotic, Poor Historian Except as stated in HPI: all other systems reviewed are Neg Objective Alert: Yes [place]: Person, Place, Date, Situation Mood: Calm Affect: Other (mildly tearful) Memory Intact: Comment (Remains intact) Hallucinations: Other (Denies AVH) Delusions: Yes Delusion Type: Paranoid (Systematized delusions regarding being monitored by gov't. ?Softening slightly?) Suicidal: Ideation (No SI) Homicidal: Ideation (No HI) Insight/Judgement Poor Remarks No motor abnormalities noted. TP linear w/in delusional system. Speech wnl rate, tone, volume. Grooming and hygiene fair. Labs Labs reviewed. No new labs. Vitals/IOs Vital Signs Date Time Temp Pulse Resp B/P Pulse Ox O2 Delivery O2 Flow Rate FiO2 07/23/16 05:51 97.3 101 142/85 18 07/22/16 18:34 16 Assessment & Plan Problem List: (1) Schizoaffective disorder ICD Code: F25.9 (2) Cannabis abuse ICD Code: F12.10 Assessment & Plan Continue loxapine as ordered. Continue Paxil as ordered. Continue to monitor on the inpatient unit. Continue other medications and care as ordered. Justification for Cont. Inpt. Impairment in reality construction. Discharge Planning Mr. Tran will come to see the patient later today or first thing in the morning. He'll give me a page and let me know what he thinks. Possible discharge tomorrow if outpatient case consultant provides reassuring assessment. Request HC Surrog/Guard Advoc?: No Problem Qualifiers (1) Schizoaffective disorder: Qualified Code: F25.8 - Other schizoaffective disorders Rj Padron MD Jul 23, 2016 11:04
[2016-07-23 11:27] VITALS: BP 151/81; PULSE 95; TEMP 97.5; O2SAT 18
[2016-07-23] MEDS: LORazepam 1 MG TAB PO PRN ×2 (12:55→20:08)
[2016-07-23 18:00] VITALS: BP 132/83; PULSE 98; RESP 18; TEMP 97.8; O2SAT 96
[2016-07-24] MEDS: IBUPROFEN 400 MG TAB PO PRN (02:50)
[2016-07-24] MEDS: LORazepam 1 MG TAB PO PRN (04:27)
[2016-07-24 05:56] VITALS: BP 139/84; PULSE 93; RESP 20; TEMP 97.4; O2SAT 97
[2016-07-24] MEDS: LISINOPRIL 20 MG TAB PO SCH (09:00)
[2016-07-24] MEDS: LOXAPINE 5 MG CAP PO SCH ×2 (09:00→20:47)
[2016-07-24] MEDS: PARoxetine HCL 20 MG TAB PO SCH (09:45)
--- NOTE | 2016-07-24 12:15 | HHI.PYPN ---
Subjective Remarks Patient seen and examined with nurse. Chart reviewed. Case discussed in treatment team with nurse, counselor and occupational therapist. Per her counselor, patient was fairly upset yesterday that he wasn't discharged. He slept poorly overnight. On my examination today, the patient complains of feeling "tired and exhausted. I just want to go home." Despite this he complains of feelings of mood instability saying "1 minute I'm happy, 1 minute sad. I think I have rapid cycling." Denies any SI or HI at this time. Denies side effects from medications. Review of Systems Except as stated in HPI: all other systems reviewed are Neg Objective Alert: Yes [place]: Person, Place, Date, Situation Mood: Anxious Affect: Blunted (affect does not betray any underlying mood instability) Memory Intact: Comment (Remains intact) Hallucinations: Other (no reported AVH) Delusions: Yes Delusion Type: Paranoid (Systematized delusions regarding being monitored by gov't. Ongoing softening?) Suicidal: Ideation (No SI) Homicidal: Ideation (No HI) Insight/Judgement Poor Remarks No motor abnormalities noted. Thought process linear. Speech within normal limits for rate, tone and volume. Grooming and hygiene good. Labs Labs reviewed. No new labs. Vitals/IOs Vital Signs Date Time Temp Pulse Resp B/P Pulse Ox O2 Delivery O2 Flow Rate FiO2 07/24/16 05:56 97.4 93 20 139/84 97 Assessment & Plan Problem List: (1) Schizoaffective disorder ICD Code: F25.9 (2) Cannabis abuse ICD Code: F12.10 Assessment & Plan Continue loxapine and Paxil as ordered. Invaaron Zelaya on board. Per patient preference, we will try to transfer the patient to the lower acuity inpatient unit today. Continue other medications and care as ordered. Justification for Cont. Inpt. High risk for decompensation in a less restrictive environment pending psychiatric stabilization. Discharge Planning Outpatient bottle caser to come reassess patient tomorrow. I anticipate the patient will be ready for discharge by the end of this week or the beginning of next week. Request HC Surrog/Guard Advoc?: No Problem Qualifiers (1) Schizoaffective disorder: Qualified Code: F25.8 - Other schizoaffective disorders Rj Padron MD Jul 24, 2016 12:15
[2016-07-24 19:51] VITALS: BP 125/78; PULSE 80; RESP 18; TEMP 97.4; O2SAT 97
[2016-07-25] MEDS: LORazepam 1 MG TAB PO PRN ×2 (01:39→21:03)
[2016-07-25] MEDS: IBUPROFEN 400 MG TAB PO PRN (04:49)
[2016-07-25 06:12] VITALS: BP 109/58; PULSE 72; RESP 18; TEMP 98.1; O2SAT 96
[2016-07-25] MEDS: LISINOPRIL 20 MG TAB PO SCH (09:00)
[2016-07-25] MEDS: LOXAPINE 5 MG CAP PO SCH ×2 (09:00→20:42)
[2016-07-25] MEDS: PARoxetine HCL 20 MG TAB PO SCH (09:00)
--- NOTE | 2016-07-25 13:12 | HHI.PYPN ---
Subjective Remarks Patient just transferred from 2700 patient seen in his room with nurse Vanna, chart reviewed. Patient somewhat labile and tearful at this time looking given no specific reason for this he does denies suicidality homicidality voices or visions. States he was perhaps not fully compliant with his medications. And that he was using marijuana and alcohol and perhaps opiates in the recent past though urine toxicology is only positive for marijuana. Will decrease when necessary Ativan from every 6 hours to every 8 hours. Patient to be seen today by the fact team sales representative jewelry Review of Systems Except as stated in HPI: all other systems reviewed are Neg Objective Alert: Yes [place]: Person, Place, Date, Situation Mood: Anxious Affect: Blunted (affect does not betray any underlying mood instability) Memory Intact: Comment (Remains intact) Hallucinations: Other (no reported AVH) Delusions: Yes Delusion Type: Paranoid (Systematized delusions regarding being monitored by gov't. Ongoing softening?) Suicidal: Ideation (No SI) Homicidal: Ideation (No HI) Insight/Judgement Poor Vitals/IOs Vital Signs Date Time Temp Pulse Resp B/P Pulse Ox O2 Delivery O2 Flow Rate FiO2 07/25/16 06:12 98.1 72 18 109/58 96 Assessment & Plan Problem List: (1) Schizoaffective disorder ICD Code: F25.9 (2) Cannabis abuse ICD Code: F12.10 Assessment & Plan Estimated LOS: days patient still somewhat labile but more focused no denying suicidality homicidality voices or visions. Will decrease when necessary scheduled Ativan. Will discuss this also with fact team Justification for Cont. Inpt. This time patient will decompensate if placed in a lower level of care Discharge Planning To be determined Request HC Surrog/Guard Advoc?: No Problem Qualifiers (1) Schizoaffective disorder: Qualified Code: F25.8 - Other schizoaffective disorders Zaki Victor MD Jul 25, 2016 13:12
[2016-07-25 18:20] VITALS: BP 163/91; PULSE 100; RESP 17; TEMP 99.1; O2SAT 95
[2016-07-26 06:40] VITALS: BP 140/94; PULSE 89; RESP 17; TEMP 97.9; O2SAT 97
[2016-07-26] MEDS: CARBOXYMETHYLCELL SOD 0.5% OPTH SOLN 15 ML BTL EACH EYE PRN (06:50)
[2016-07-26] MEDS: LOXAPINE 5 MG CAP PO SCH ×2 (09:18→21:00)
[2016-07-26] MEDS: PARoxetine HCL 20 MG TAB PO SCH (09:19)
[2016-07-26] MEDS: LISINOPRIL 20 MG TAB PO SCH (09:19)
--- NOTE | 2016-07-26 14:27 | HHI.PYPN ---
Subjective Remarks Patient seen today in room with nurse Tanvi patient continues somewhat sad labile though quieter than yesterday. Now stating he feels she would do better if discharged home. While patient's compliant medications I feel this some degree of manipulation with this. He continues quite needy and at times somewhat intrusive and a bland way. For now continue treatment Review of Systems Except as stated in HPI: all other systems reviewed are Neg Objective Alert: Yes [place]: Person, Place, Date, Situation Mood: Anxious Affect: Blunted (affect does not betray any underlying mood instability) Memory Intact: Comment (Remains intact) Hallucinations: Other (no reported AVH) Delusions: Yes Delusion Type: Paranoid (Systematized delusions regarding being monitored by gov't. Ongoing softening?) Suicidal: Ideation (No SI) Homicidal: Ideation (No HI) Insight/Judgement Poor Vitals/IOs Vital Signs Date Time Temp Pulse Resp B/P Pulse Ox O2 Delivery O2 Flow Rate FiO2 07/26/16 06:40 97.9 89 17 140/94 97 Intake and Output 07/25/16 07/25/16 07/26/16 08:00 16:00 00:00 Intake Total 240 ml 360 ml Balance 240 ml 360 ml Assessment & Plan Problem List: (1) Schizoaffective disorder ICD Code: F25.9 (2) Cannabis abuse ICD Code: F12.10 Assessment & Plan Estimated LOS: days patient calmer showing perhaps of slight amount of insight into his behavior. Compliant medications. However he still remains labile. For now continue treatment Justification for Cont. Inpt. At this time patient will decompensate if placed on lower level of care Discharge Planning To be determined Request HC Surrog/Guard Advoc?: No Problem Qualifiers (1) Schizoaffective disorder: Qualified Code: F25.8 - Other schizoaffective disorders Zaki Victor MD Jul 26, 2016 14:27
[2016-07-26] MEDS: LORazepam 1 MG TAB PO PRN (15:12)
[2016-07-26 19:31] VITALS: BP 136/77; PULSE 110; RESP 16; TEMP 98.4; O2SAT 97
[2016-07-27 05:39] VITALS: BP 130/87; PULSE 90; RESP 18; TEMP 98; O2SAT 97
[2016-07-27] MEDS: LOXAPINE 5 MG CAP PO SCH ×2 (09:15→20:26)
[2016-07-27] MEDS: LISINOPRIL 20 MG TAB PO SCH (09:15)
[2016-07-27] MEDS: PARoxetine HCL 20 MG TAB PO SCH (09:16)
[2016-07-27] MEDS ORDERED: REFR0.5D4 EACH EYE (10:59)
[2016-07-27] MEDS ORDERED: IBUP-232 PO (10:59)
[2016-07-27] MEDS ORDERED: LISI-515 PO (10:59)
--- NOTE | 2016-07-27 14:18 | HHI.PYPN ---
Subjective Remarks Patient seen in Winter with nurse Tanvi, chart reviewed, patient compliant medications. Today patient showing some increase affect he is up about to go to the [employer] [facility], states she is feeling better he has better eye contact. For now continue treatment consider discharge first part of next week to the fact team Review of Systems Except as stated in HPI: all other systems reviewed are Neg Objective Alert: Yes [place]: Person, Place, Date, Situation Mood: Anxious (somewhat decreased) Affect: Blunted (somewhat diminished) Memory Intact: Comment (Remains intact) Hallucinations: Other (no reported AVH) Delusions: Yes Delusion Type: Paranoid (Systematized delusions regarding being monitored by gov't. Ongoing softening?) Suicidal: Ideation (No SI) Homicidal: Ideation (No HI) Insight/Judgment Poor Vitals/IOs Vital Signs Date Time Temp Pulse Resp B/P Pulse Ox O2 Delivery O2 Flow Rate FiO2 07/27/16 05:39 98.0 90 18 130/87 97 Assessment & Plan Problem List: (1) Schizoaffective disorder ICD Code: F25.9 (2) Cannabis abuse ICD Code: F12.10 Assessment & Plan Estimated LOS: days patient continues somewhat vigilant and paranoid though softening, compliant medications, now denies suicidality voices or visions. Justification for Cont. Inpt. At this time patient will decompensate if placed in a lower level of care Discharge Planning To be determined Request HC Surrog/Guard Advoc?: No Problem Qualifiers (1) Schizoaffective disorder: Qualified Code: F25.8 - Other schizoaffective disorders Zaki Victor MD Jul 27, 2016 14:18
[2016-07-27] MEDS: LORazepam 1 MG TAB PO PRN (17:25)
[2016-07-27 19:00] VITALS: BP 157/60; PULSE 103; RESP 18; TEMP 98.1; O2SAT 98
[2016-07-28] MEDS: IBUPROFEN 400 MG TAB PO PRN (05:19)
[2016-07-28 05:50] VITALS: BP 125/57; PULSE 79; RESP 18; TEMP 97.4; O2SAT 98
[2016-07-28] MEDS: LOXAPINE 5 MG CAP PO SCH ×2 (09:21→21:00)
[2016-07-28] MEDS: PARoxetine HCL 20 MG TAB PO SCH (09:22)
[2016-07-28] MEDS: LISINOPRIL 20 MG TAB PO SCH (09:22)
[2016-07-28] MEDS: LORazepam 1 MG TAB PO PRN ×2 (10:38→17:50)
--- NOTE | 2016-07-28 13:39 | HHI.PYPN ---
Subjective Remarks Patient was seen and case discussed with nursing. Patient describes a story that led to his admission. He had various paranoid delusions that he was being spied on by the government and others. He says he got so out of hand that he had suicidal thoughts and was going to jump off a bridge. Delusions have improved and patient is less preoccupied with those thoughts. However he still has some lingering psychosis believing that there is biometrics in the bathrooms with us checking how many times patient's use the handles. Patient is well spoken and quite intelligent. Denies any auditory or visual hallucinations. Compliant with his medications. Objective Alert: Yes [place]: Person, Place, Date, Situation Mood: Calm Affect: Restricted Memory Intact: Comment (Remains intact) Hallucinations: Other (no reported AVH) Delusions: Yes Delusion Type: Paranoid (continues to have delusions) Suicidal: Ideation (No SI) Homicidal: Ideation (No HI) Insight/Judgment Fair Vitals/IOs Vital Signs Date Time Temp Pulse Resp B/P Pulse Ox O2 Delivery O2 Flow Rate FiO2 07/28/16 05:50 97.4 79 18 125/57 98 Intake and Output 07/27/16 07/27/16 07/28/16 08:00 16:00 00:00 Intake Total 360 ml 360 ml Balance 360 ml 360 ml Assessment & Plan Problem List: (1) Schizoaffective disorder ICD Code: F25.9 (2) Cannabis abuse ICD Code: F12.10 Assessment & Plan Continue current treatment plan Justification for Cont. Inpt. Patient will decompensate in a less restrictive setting Request HC Surrog/Guard Advoc?: No Problem Qualifiers (1) Schizoaffective disorder: Qualified Code: F25.8 - Other schizoaffective disorders Ten Rodriguez DO Jul 28, 2016 13:39
[2016-07-28 19:40] VITALS: BP 118/68; PULSE 99; RESP 18; TEMP 97.9; O2SAT 98
[2016-07-29 06:12] VITALS: BP 124/84; PULSE 100; RESP 18; TEMP 97.6; O2SAT 98
[2016-07-29] MEDS: LOXAPINE 5 MG CAP PO SCH ×2 (09:00→21:00)
[2016-07-29] MEDS: PARoxetine HCL 20 MG TAB PO SCH (09:24)
[2016-07-29] MEDS: LISINOPRIL 20 MG TAB PO SCH (09:24)
[2016-07-29] MEDS: LORazepam 1 MG TAB PO PRN ×2 (13:01→21:16)
--- NOTE | 2016-07-29 16:49 | HHI.PYPN ---
Subjective Remarks Patient was seen and case discussed with nursing. Patient is coherent, intelligent, and well spoken. His insight is improving and he realizes that some of his bizarre thoughts were delusions are not true. Remains largely seclusive to self the constricted affect. No new delusions were elicited today. Denies auditory visual hallucinations. Chief complaint is loxapine making him tired in the mornings Objective Alert: Yes [place]: Person, Place, Date, Situation Mood: Calm Affect: Blunted Memory Intact: Comment (Remains intact) Hallucinations: Other (no reported AVH) Delusions: Yes Delusion Type: Paranoid (improving) Suicidal: Ideation (No SI) Homicidal: Ideation (No HI) Insight/Judgment Improving Vitals/IOs Vital Signs Date Time Temp Pulse Resp B/P Pulse Ox O2 Delivery O2 Flow Rate FiO2 07/29/16 06:12 97.6 100 18 124/84 98 Assessment & Plan Problem List: (1) Schizoaffective disorder ICD Code: F25.9 (2) Cannabis abuse ICD Code: F12.10 Assessment & Plan Consider medication adjustments tomorrow Justification for Cont. Inpt. Patient will decompensate in a less restrictive setting Request HC Surrog/Guard Advoc?: No Problem Qualifiers (1) Schizoaffective disorder: Qualified Code: F25.8 - Other schizoaffective disorders Ten Rodriguez DO Jul 29, 2016 16:49
[2016-07-29 19:52] VITALS: BP 136/73; PULSE 108; TEMP 98.2; O2SAT 97
[2016-07-30] MEDS: IBUPROFEN 400 MG TAB PO PRN (04:08)
[2016-07-30 06:26] VITALS: BP 117/59; PULSE 72; RESP 18; TEMP 97.9; O2SAT 96
[2016-07-30] MEDS: LOXAPINE 5 MG CAP PO SCH ×2 (09:00→20:25)
[2016-07-30] MEDS: LISINOPRIL 20 MG TAB PO SCH (09:04)
[2016-07-30] MEDS: PARoxetine HCL 20 MG TAB PO SCH (09:05)
--- NOTE | 2016-07-30 16:20 | HHI.PYPN ---
Subjective Remarks Patient discussed with treatment team, chart review, patient 7 unit. Patient remains somewhat calm and appropriate with me does denies suicidality homicidality voices at this time. It appears the fact team was unable to meet with our treatment team. Need to contact them to discuss choice for long- acting injection the [place] sustained a versus trifenza Review of Systems Except as stated in HPI: all other systems reviewed are Neg Objective Alert: Yes [place]: Person, Place, Date, Situation Mood: Calm Affect: Blunted Memory Intact: Comment (Remains intact) Hallucinations: Other (no reported AVH) Delusions: Yes Delusion Type: Paranoid (improving) Suicidal: Ideation (No SI) Homicidal: Ideation (No HI) Insight/Judgment Poor Vitals/IOs Vital Signs Date Time Temp Pulse Resp B/P Pulse Ox O2 Delivery O2 Flow Rate FiO2 07/30/16 06:26 97.9 72 18 117/59 96 Assessment & Plan Problem List: (1) Schizoaffective disorder ICD Code: F25.9 (2) Cannabis abuse ICD Code: F12.10 Assessment & Plan Estimated LOS: days patient continues somewhat suspicious vigilant, though compliant medications Justification for Cont. Inpt. At this time patient decompensate if placed in a lower level of care Discharge Planning To be determined Request HC Surrog/Guard Advoc?: No Problem Qualifiers (1) Schizoaffective disorder: Qualified Code: F25.8 - Other schizoaffective disorders Zaki Victor MD Jul 30, 2016 16:20
[2016-07-30 18:25] VITALS: BP 122/73; PULSE 88; RESP 18; TEMP 98.6; O2SAT 98
[2016-07-31 05:25] VITALS: BP 119/86; PULSE 67; RESP 18; TEMP 97.2; O2SAT 98
[2016-07-31] MEDS: LOXAPINE 5 MG CAP PO SCH ×2 (09:16→20:14)
[2016-07-31] MEDS: LISINOPRIL 20 MG TAB PO SCH (09:17)
[2016-07-31] MEDS: PARoxetine HCL 20 MG TAB PO SCH (09:17)
--- NOTE | 2016-07-31 13:11 | HHI.PYPN ---
Subjective Remarks Patient seen in his room with nurse Dempsey, chart review, patient compliant medications. Patient somewhat whiny and manipulative. Is also some paranoia and vigilance noted. Will increase Loxitane to 20 mg twice a day. We also met the patient's fact team counselor Dariusz, will consider discharge or patient on 08/02 to follow-up with the fact team psychiatrist Review of Systems Except as stated in HPI: all other systems reviewed are Neg Objective Alert: Yes [place]: Person, Place, Date, Situation Mood: Calm Affect: Blunted Memory Intact: Comment (Remains intact) Hallucinations: Other (no reported AVH) Delusions: Yes Delusion Type: Paranoid (improving) Suicidal: Ideation (No SI) Homicidal: Ideation (No HI) Insight/Judgment Poor Vitals/IOs Vital Signs Date Time Temp Pulse Resp B/P Pulse Ox O2 Delivery O2 Flow Rate FiO2 07/31/16 05:25 97.2 67 18 119/86 98 Intake and Output 07/30/16 07/30/16 07/31/16 08:00 16:00 00:00 Intake Total 120 ml 360 ml Balance 120 ml 360 ml Assessment & Plan Problem List: (1) Schizoaffective disorder ICD Code: F25.9 (2) Cannabis abuse ICD Code: F12.10 Assessment & Plan Estimated LOS: days patient continues volatile manipulative mildly paranoid, see medication adjustment above, consider discharge to fact team 08/02 Justification for Cont. Inpt. At this time patient will decompensate and placed in the lower level of care Discharge Planning To be determined Request HC Surrog/Guard Advoc?: No Problem Qualifiers (1) Schizoaffective disorder: Qualified Code: F25.8 - Other schizoaffective disorders Zaki Victor MD Jul 31, 2016 13:11
[2016-07-31 17:48] VITALS: BP 125/84; PULSE 92; RESP 18; TEMP 97.6; O2SAT 98
[2016-07-31] MEDS: LORazepam 1 MG TAB PO PRN (18:13)
[2016-08-01 05:33] VITALS: BP 127/60; PULSE 95; RESP 20; TEMP 98; O2SAT 98
[2016-08-01] MEDS: PARoxetine HCL 20 MG TAB PO SCH (08:51)
[2016-08-01] MEDS: LISINOPRIL 20 MG TAB PO SCH (08:51)
[2016-08-01] MEDS: LOXAPINE 5 MG CAP PO SCH ×2 (08:51→20:13)
--- NOTE | 2016-08-01 12:42 | HHI.PYPN ---
Subjective Remarks Patient seen in Winter with nurse Allie, chart review, patient calm though continues somewhat needy with continued efforts to rationalize intellectualize his behaviors, as if he is "over thinking". He should compliant medications. Denies suicidality homicidality voices or visions. The plan is to discharge patient to fact team tomorrow with follow-up fact team psychiatrist Review of Systems Except as stated in HPI: all other systems reviewed are Neg Objective Alert: Yes [place]: Person, Place, Date, Situation Mood: Calm Affect: Blunted Memory Intact: Comment (Remains intact) Hallucinations: Other (no reported AVH) Delusions: Yes Delusion Type: Paranoid (denies today) Suicidal: Ideation (No SI) Homicidal: Ideation (No HI) Insight/Judgment Poor Vitals/IOs Vital Signs Date Time Temp Pulse Resp B/P Pulse Ox O2 Delivery O2 Flow Rate FiO2 08/01/16 05:33 98.0 95 20 127/60 98 Assessment & Plan Problem List: (1) Schizoaffective disorder ICD Code: F25.9 (2) Cannabis abuse ICD Code: F12.10 Assessment & Plan Estimated LOS: days patient now calmer denying voices or visions suicidality, continues to do some intellectualization. However this I feel his reached maximum benefit of this hospitalization will consider discharging him tomorrow to the fact team Justification for Cont. Inpt. Consider discharge tomorrow to the fact team Discharge Planning To be determined Request HC Surrog/Guard Advoc?: No Problem Qualifiers (1) Schizoaffective disorder: Qualified Code: F25.8 - Other schizoaffective disorders Zaki Victor MD Aug 01, 2016 12:42
[2016-08-01 16:00] VITALS: BP 135/64; PULSE 104; RESP 18; TEMP 97.9; O2SAT 99
[2016-08-01] MEDS: LORazepam 1 MG TAB PO PRN (16:26)
[2016-08-01] MEDS: IBUPROFEN 400 MG TAB PO PRN (20:14)
[2016-08-02 05:00] VITALS: BP 125/73; PULSE 84; RESP 16; TEMP 97.7; O2SAT 97
[2016-08-02] MEDS ORDERED: LOXA10CA PO (09:19)
[2016-08-02] MEDS: PARoxetine HCL 20 MG TAB PO SCH (09:19)
[2016-08-02] MEDS: LISINOPRIL 20 MG TAB PO SCH (09:19)
[2016-08-02] MEDS: LOXAPINE 5 MG CAP PO SCH (09:19)
[2016-08-02] MEDS ORDERED: PAXI30TA7 PO (09:19)
--- NOTE | 2016-08-02 09:25 | HHI.DS ---
Psychiatry Discharge Summary Inpatient Psychiatric care?: Yes Advance Directive: No Reason Not Provided: DECLINED Mental Health AdvanceDirective: No Health Care Proxy: No Admission Admission Date Jul 17, 2016 at 05:55 Admission Diagnosis: (1) Schizoaffective disorder ICD Code: F25.9 Brief History Mr. Mcconnell is a 36-year-old male with a reported history of schizoaffective disorder who presents to us under a Cotter act alleging that the patient went to the FACT office and threatened suicide by jumping off the [place] bridge. Cotter act further alleges that the patient believes that he was being pursued by the [employer] and was being monitored by satellites. Reviewing the electronic medical record, I note the patient was admitted most recently under Dr. Vaughan in 2010 following an aspirin overdose. Patient seen and examined with nursing staff. Chart reviewed. Case discussed with nurse on the inpatient psychiatric unit. On my examination today, the patient presents as an intelligent and cogent historian. He says that he has been feeling increasingly depressed over the last year or so and has been contemplating suicide by jumping off the [place] bridge within the span of the last few weeks. He endorses associated feelings of hopelessness. He feels trapped because he believes he is being pursued by law enforcement for a reported history of minor drug offences. He believes that staff and patients on the unit may be planted by law enforcement to monitor him. He is glad that he didn' t go through with his suicide plan but continues to voice ideation towards jumping off the [place] bridge. He also notes that he does not trust the FACT team , "because I believe my step-father's new is the leader of the FACT team." He also believes that FACT workers are colluding with law enforcement. No reported AVH or CAH at this time. He denies homicidal ideation, including against those he perceives as pursuing him, saying he would rather do himself in instead. No hypomanic/manic symptoms. The remainder of the psychiatric ROS is negative. Patient has produced an 8 page document articulating his belief that "I am being targeted and tracked by senior officials under direct supervision of the [place]...under direct supervision of the emergency medicine of [place], Glen Herrera." He says that he was made aware of this fact through the internet and consequently "would like to relocate and delete/deactivate all advanced technological devices and lead a simple life." Past psychiatric history: Patient reports a history of schizoaffective disorder. He is followed by Dr. Cazares at [facility]. His most recent psychiatric admission was here at [facility] following his aspirin overdose. He is currently prescribed Paxil 30 mg daily and Invega Trinza 819mg, which he received last week. Patient reports poor responses in the past to Thorazine and Haldol but says that he has done well with loxapine. Family history: Patient reports bipolar disorder and an uncle. No reported family history of suicide. Chemical dependency history: Patient reports chronic use of cannabis. He denies other substance use. Patient feels like the cannabis is helpful for his symptomatology and says that he felt worse when he discontinued it about a week ago. He is able to speak quite intelligently about cannabis use, highlighting the different effects of THC versus CBD for example. Social history: Patient reports that he was raised by his mother and stepfather. He is himself and has no children. He is on disability. He endorses a history of drug crime but denies any history of violent crime. Tobacco Use In Past 30 Days: No Tobacco Past 30 Days Alcohol Use: Never Hospital Course Patient's initial mood lability paranoia and difficulty with compliance medication gradually resolved with participation in milieu and complaints medication. He continued to show neediness some rationalization intellectual his patient who is behaviors. However he became more cooperative on unit continue to denies suicidality homicidality voices or visions. There are visits with patient's fact team sales service representative. Patient recently now has shown increased socialization better hygiene up in about with other patients on the unit. At this time patient reached maximum benefit of this hospitalization. Thus patient to be discharged today to the fact team with Rx 1 month for follow -up psychiatric services through the fact team Results Blood Pressure 125 / 73 Vital Signs Date Time Temp Pulse Resp B/P Pulse Ox O2 Delivery O2 Flow Rate FiO2 08/02/16 05:00 97.7 84 16 125/73 97 Urine toxicology positive for marijuana Summary of Procedures None done Pending results at discharge: No Medications # of Antipsychotic meds at D/C: 1 Approp Antipsych med options 1 - Minimum of three failed multiple trials of monotherapy. 2 - Documented plan to taper to monotherapy due to previous use of multiple meds OR cross-taper in progress at D/C. 3 - Documentation of augmentation of Clozapine. 4 - Justification other than those listed in allowable values 1-3, document here : Discharge Discharge Date: Aug 02, 2016 Discharge Diagnosis: (1) Schizoaffective disorder ICD Code: F25.9 Mental Status Exam at Disch Alert oriented white male calm cooperative, he is normal active, mood is euthymic is somewhat restricted with slight decrease range and intensity, speech rate and rhythm is slow overall goal oriented with just some mild tangentiality, no auditory or visual hallucinations no delusions noted insight and judgment is poor cognition grossly intact Pt Condition on Discharge: Stable Discharge Disposition: Discharge Home Discharge Instructions Diet Instructions: As Tolerated, No Restrictions Activities you can perform: Regular-No Restrictions Scheduled Appointment: Alberto Choi Appointment Date: Aug 06, 2016 Appointment Time: 10:00am Discharge Time > 30 minutes Discharge/Advance Care Plan Health Problems: (1) Schizoaffective disorder (2) Cannabis abuse Goals to promote your health * To prevent worsening of your condition and complications * To maintain your health at the optimal level Directions to meet your goals Take your medications as prescribed Follow your dietary instruction Follow activity as directed Keep your appointments as scheduled Take your immunizations and boosters as scheduled If your symptoms worsen call your PCP, if no PCP go to Urgent Care Center or Emergency Room For 24/ questions related to your inpatient stay or results of tests pending at discharge, please contact Dr. Zaki Victor at Smoking is Dangerous to Your Health. Avoid second hand smoking Problem Qualifiers (1) Schizoaffective disorder: Qualified Code: F25.8 - Other schizoaffective disorders Zaki Victor MD Aug 02, 2016 09:25
== END 2016-08-02 13:30 | disposition home or self-care (01) | DRG 885 ==
LOC: NEPJ 11:15 → NEDA 07-17 05:55 → H270 07-17 06:32 → H260 07-24 17:14
PROVIDERS: ADMIT Psychiatry & Neurology Psychiatry; ATTEND Psychiatry & Neurology Psychiatry
DX: F25.9 Schizoaffective disorder, unspecified (principal); I10 Essential (primary) hypertension; E78.5 Hyperlipidemia, unspecified; F17.210 Nicotine dependence, cigarettes, uncomplicated; F12.10 Cannabis abuse, uncomplicated; M25.512 Pain in left shoulder; J30.2 Other seasonal allergic rhinitis
CPT/HCPCS: 80048; 80053; 80061; 80307; 83036; 85025; 99284; Q0163

== ENCOUNTER 2016-10-25 02:53 | Inpatient (IN) | payer MEDICARE, OTHER ==
[~2016-10-25] VITALS: Ht 175.3 cm; Wt 95.4 kg
[~2016-10-25 02:53] MED LIST changes: -CEPH500C PO; +IBUP-232 PO; -INVEGA SUSTENNA IM; +LISI-515 PO; +LOXA10CA PO; +PALI1.75 IM; -PARO20TA PO; +PARO30TA2 PO; +PAXI30TA7 PO; +REFR0.5D4 EACH EYE
[2016-10-25 04:20] VITALS: BP 126/72; PULSE 83; RESP 18; TEMP 96.7; O2SAT 98
[2016-10-25] MEDS ORDERED: hydrOXYzine HCL 50 MG TAB PO PRN (05:00)
[2016-10-25] MEDS ORDERED: ALUMINUM/MAGNESIUM/SIMETH 30 ML CUP PO PRN (05:00)
[2016-10-25] MEDS ORDERED: MAGNESIUM HYDROXIDE SUSP 30 ML CUP PO PRN (05:00)
[2016-10-25] MEDS ORDERED: ACETAMINOPHEN 325 MG TAB PO PRN (05:00)
[2016-10-25 06:20] VITALS: BP 126/72; PULSE 83; RESP 18; TEMP 96.7; O2SAT 98
[2016-10-25] MEDS: NICOTINE 21 MG/24 HR PATCH T-DERMAL SCH (09:00)
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
[2016-10-25 17:16] VITALS: BP 116/58; PULSE 82; RESP 17; TEMP 99; O2SAT 99
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
[2016-10-25] MEDS: REMOVE OLD NICOTINE PATCH T-DERMAL SCH (21:00)
[2016-10-26 05:24] VITALS: BP 102/54; PULSE 60; RESP 18; TEMP 97.4; O2SAT 96
[2016-10-26] MEDS: NICOTINE 21 MG/24 HR PATCH T-DERMAL SCH (09:00)
[2016-10-26 10:22] LABS: FREE T4 1.16 NG/DL (0.76-1.46)
--- NOTE | 2016-10-26 13:57 | HHI.PYPN ---
Subjective Remarks Patient seen and examined. Chart reviewed. Case discussed with nursing staff. On my examination today, the patient says that he feels better off of the Paxil and Latuda. He feels less overmedicated he tells me. He denies any suicidal or homicidal ideation. He denies any audiovisual hallucinations. I can elicit no delusional material, and the patient insists that the only time that he becomes paranoid is when he abuses cannabis, and he says that he does not do that anymore. He is pleased that neurological workup is ongoing. He denies side effects from medications. No physical complaints. Review of Systems Except as stated in HPI: all other systems reviewed are Neg Objective Alert: Yes [place]: Person, Place, Date Mood: Calm Affect: Appropriate Memory Intact: Comment (intact on clinical exam) Hallucinations: Other (denies AVH) Delusions: No Delusion Type: Other (no delusional material) Suicidal: Ideation (denies suicidal ideation) Homicidal: Ideation (denies homicidal ideation) Insight/Judgment Fair Remarks No motor abnormalities noted. Thought process linear. Grooming and hygiene good. Labs Test 10/26/16 10/26/16 08:46 11:00 Vitamin B12 Level 304 PG/ML Free Thyroxine 1.16 NG/DL Thyroid Stimulating Hormone 0.938 uIU/ML 3rd Gen Erythrocyte Sedimentation Rate 7 mm/hr Labs reviewed. Last Impressions Brain MRI 10/26/161946 Signed Impressions: Service Date/Time: Wednesday, October 26, 2016 16:06 - CONCLUSION: Normal examination for a patient of this age. Oscar Villanueva MD Vitals/IOs Vital Signs Date Time Temp Pulse Resp B/P Pulse Ox O2 Delivery O2 Flow Rate FiO2 10/26/16 05:24 97.4 60 18 102/54 96 Assessment & Plan Problem List: (1) Schizoaffective disorder ICD Code: F25.9 Assessment & Plan No evidence of psychotic or mood decompensation off of Latuda and Paxil. Ramesh Tavera on board. Patient is pleased to be on less medication. Continue to monitor on the inpatient unit through the weekend. Neurology input noted and appreciated. Continue other medications and care as ordered. Justification for Cont. Inpt. Monitoring for signs of decompensation as medication regimen is simplified. Discharge Planning Anticipate discharge after the weekend so long as neurology workup has been completed and the patient remains psychiatrically stable. Request HC Surrog/Guard Advoc?: No Problem Qualifiers (1) Schizoaffective disorder: Qualified Code: F25.8 - Other schizoaffective disorders Rj Padron MD Oct 26, 2016 13:57
[2016-10-26] MEDS ORDERED: GADODIAMIDE PF 287 MG/ML 20 ML VIAL (for RAD MRI) IV ONE (16:39)
--- NOTE | 2016-10-26 17:00 | RADRPT ---
EXAM DATE/TIME: 10/26/2016 16:06 [place] COMPARISON: No previous studies available for comparison. INDICATIONS : Cephalgia. CVA. CONTRAST: 17 cc Omniscan (gadodiamide) IV MEDICAL HISTORY : Hypertension. SURGICAL HISTORY : Appendectomy. ENCOUNTER: Initial ACUITY: 2 day PAIN SCORE: 0/10 LOCATION: Head TECHNIQUE: Multiplanar, multisequence MRI of the brain was performed both prior to and following the administrat ion of paramagnetic contrast. FINDINGS: CEREBRUM: The ventricles are normal for age. No evidence of midline shift, mass lesion, hemorrhage or acute in farction. No extraaxial fluid collections are seen. The pituitary gland and suprasellar cistern are normal in configuration. WHITE MATTER: No significant signal abnormalities are seen in the white matter. POSTERIOR FOSSA: The cerebellum and brainstem are intact. The 4th ventricle is midline. The cerebellopontine angle is unremarkable. The cerebellar tonsils are normal in position. DIFFUSION IMAGING: No focal areas of restricted diffusion are seen. No evidence of acute infarction. EXTRACRANIAL: The visualized portions of the orbits and paranasal sinuses are unremarkable. POST-CONTRAST: No abnormal areas of parenchymal or dural enhancement. No evidence of blood-brain barrier breakdown. CONCLUSION: Normal examination for a patient of this age. Oscar Villanueva MD on October 26, 2016 at 16:57 Board Certified Radiologist. This report was verified electronically.
[2016-10-26 18:09] VITALS: BP 126/66; PULSE 65; RESP 17; TEMP 98.9; O2SAT 97
[2016-10-26] MEDS: REMOVE OLD NICOTINE PATCH T-DERMAL SCH (21:00)
[2016-10-27 06:03] VITALS: BP 108/55; PULSE 60; RESP 18; TEMP 97.3; O2SAT 97
[2016-10-27] MEDS: NICOTINE 21 MG/24 HR PATCH T-DERMAL SCH ×2 (09:00→22:49)
--- NOTE | 2016-10-27 12:11 | HHI.PYPN ---
Subjective Remarks Pt seen and discussed with staff. He reports that his mind and thoughts feel more clear and sharp today. He denies SI/HI and reports that suicide attempt was an impulsive, wrong decision. "I was feeling like nothing would change or work for me. Now that I'm thinking better I realize that there are always options to make changes." No behavioral problems on unit. He is tolerating changes to medication regimen without decompensation so far. Last Invega injection was 10/22/2016 Objective Alert: Yes [place]: Person, Place, Date Mood: Calm Affect: Appropriate Memory Intact: Comment (intact on clinical exam) Hallucinations: Other (denies AVH) Delusions: No Delusion Type: Other (no delusional material) Suicidal: Ideation (denies suicidal ideation) Homicidal: Ideation (denies homicidal ideation) Insight/Judgment fair Vitals/IOs Vital Signs Date Time Temp Pulse Resp B/P Pulse Ox O2 Delivery O2 Flow Rate FiO2 10/27/16 06:03 97.3 60 18 108/55 97 Assessment & Plan Problem List: (1) Schizoaffective disorder ICD Code: F25.9 Assessment & Plan Continue current tx plan. Estimated LOS: days Justification for Cont. Inpt. monitoring for decompensation with medication changes Request HC Surrog/Guard Advoc?: No Problem Qualifiers (1) Schizoaffective disorder: Qualified Code: F25.8 - Other schizoaffective disorders Norma López MD Oct 27, 2016 12:11
[2016-10-27 17:44] VITALS: BP 127/66; PULSE 57; RESP 19; TEMP 97.8; O2SAT 97
[2016-10-27] MEDS: REMOVE OLD NICOTINE PATCH T-DERMAL SCH (21:00)
[2016-10-28 06:18] VITALS: BP 110/73; PULSE 66; RESP 18; TEMP 96.8; O2SAT 98
--- NOTE | 2016-10-28 12:02 | HHI.PYPN ---
Subjective Remarks Pt seen and discussed with staff. No behavioral problems on unit. He is compliant with medications and denies side effects. No SI/HI. Objective Alert: Yes [place]: Person, Place, Date Mood: Calm Affect: Appropriate Memory Intact: Comment (intact on clinical exam) Hallucinations: Other (none) Delusions: No Delusion Type: Other (no delusional material) Suicidal: Ideation (denies suicidal ideation) Homicidal: Ideation (denies homicidal ideation) Insight/Judgment poor Vitals/IOs Vital Signs Date Time Temp Pulse Resp B/P Pulse Ox O2 Delivery O2 Flow Rate FiO2 10/28/16 06:18 96.8 66 18 110/73 98 Assessment & Plan Problem List: (1) Schizoaffective disorder ICD Code: F25.9 Assessment & Plan Continue current tx plan. Estimated LOS: days Justification for Cont. Inpt. risk of decompensation Request HC Surrog/Guard Advoc?: No Problem Qualifiers (1) Schizoaffective disorder: Qualified Code: F25.8 - Other schizoaffective disorders Norma López MD Oct 28, 2016 12:02
--- NOTE | 2016-10-28 12:42 | MG ---
cc: TAVARES HERNANDEZ M.D., DALIA M.D. Lab No: Sex: M Race: M EE REFERRING PHYSICIAN: Dr. Hernandez. Room 2711 Awake. Hyperventilation, photic with good effort. MRI normal for age. States from [facility], under [place]ter Act, seen for overdosing. Patient has schizoaffective disorder, hyperlipidemia, hypertension, schizophrenia, substance abuse, alcohol, marijuana. DESCRIPTION OF RECORD Somewhat low amplitude EEG. There is a lot of eye movement artifact. Photic stimulation without any significant driving, minimal at best driving. Somewhat slow background, theta range. Hyperventilation performed without any change in background. A lot of eye movement artifact. There is no epileptic activity. IMPRESSION: Overall mild slowing, may be mild encephalopathic process. Could be medicine effect. There is no evidence of any epileptic activity. MD OLGA LIDIA Arrieta/TOMEKA /11:41 AM 12:40 PM
[2016-10-28 17:00] VITALS: BP 113/67; PULSE 57; RESP 17; TEMP 98.1; O2SAT 99
[2016-10-28] MEDS: REMOVE OLD NICOTINE PATCH T-DERMAL SCH (20:55)
[2016-10-29 06:10] VITALS: BP 104/56; PULSE 52; RESP 18; TEMP 97.2; O2SAT 99
[2016-10-29] MEDS: NICOTINE 21 MG/24 HR PATCH T-DERMAL SCH (09:00)
[2016-10-29] MEDS ORDERED: PALI156P IM (09:48)
--- NOTE | 2016-10-29 09:48 | HHI.DS ---
Psychiatry Discharge Summary Inpatient Psychiatric care?: Yes Advance Directive: No Reason Not Provided: Patient not interested Mental Health AdvanceDirective: No Health Care Proxy: No Admission Admission Date Oct 25, 2016 at 04:20 Admission Diagnosis: (1) Schizoaffective disorder ICD Code: F25.9 Brief History Mr. Mcconnell is a 36 year-old male with a history of schizoaffective disorder who presents in transfer from [facility] under a [place] act following a lisinopril overdose. Records from [facility] reviewed. Reviewing our own electronic medical record, I note that the patient was admitted here most recently in June and July of this year. Patient seen and examined with counselor and nurse. Chart reviewed. Case discussed with nursing staff. On my examination today, the patient says that he believes that his current symptoms are related to difficulties he feels that he has been having with his long-acting injectable antipsychotic, Invega Sustenna/Trinza. He believes that he received a bad batch of Trinza from his [facility] following discharge from the psychiatric unit here. "The FACT team won't deny it, but they won't give a report." He tells me that he took all of his lisinopril, "because I've been in the [mental health ] system for 15 years, and I don't see any way out of the psych medicine system. " He denies suicidal ideation now. I can elicit no delusional material. He does not, for example, articulate any belief that government agencies are out to get him as he did last time. He denies AVH. He denies low mood. No hypomanic/manic symptoms. He does complain that his thoughts are somewhat scattered. The remainder of the psychiatric ROS is negative. Past psychiatric history: Patient continues to follow with the FACT team. He sees Dr. Dye. His gearcase assembler is FACUNDO Velarde. He denies any interval psychiatric admissions or suicide attempts since his last visit here. He remains on paliperidone, now Invega Sustenna, and says that he received his last dose this past Saturday. He also is prescribed Paxil and Latuda and says that he has been taking his psychotropics as prescribed, although he does not believe they are helping him much. Family history: History of bipolar illness in an uncle. No other family psychiatric history. Chemical dependency history: Patient denies any abuse of drugs or alcohol at this time. Social history: Patient reports that he lives with his mother. He is and has no children. He denies any access to guns or firearms. He denies any history of abuse or mistreatment. With the patient's permission I have obtained collateral information from his mother, Ms. Michelle. She reports that the patient's concerns regarding the FACT team and the Invega Trinza are reality based and do not reflect paranoia; she shares these concerns. She also agrees with patient that he has derived minimal benefit from psychotropics and believes he is overmedicated. She believes that patient's psychiatric symptoms started after a head injury at age 16; she is concerned about TBI. She has spoken with PCP about having patient evaluated by a neurologist. She has no concerns about patient being an ongoing risk of harm to self. She believes the patient could be discharged today but is supportive of a brief period of observation on the inpatient unit, especially if patient can be evaluated by neurology on a consultative basis while he is here. She has already secured patient's medications. I have further recommended that all knives and other means of self-harm have been secured. There are no guns in the home. She is in agreement with the treatment plan as outlined below and thanks me for the consultation. I have asked the RN to apprise patient of our discussion. Tobacco Use In Past 30 Days: 5 or More Cigarettes/Day Alcohol Use: Never Hospital Course The patient was admitted to a locked, inpatient psychiatric unit. A neurology consultation was obtained. Appropriate precautions were in place throughout patient's hospital stay. Patient was seen and examined daily on the unit by psychiatry and also visited by counselor. Psychotropic medications were adjusted. In particular, the patient's psychotropic medication regimen was considerably simplified such that at discharge he was only on Invega Sustenna. Patient suffered no evidence of decompensation with respect either psychosis or mood or in any other respect with this simplification of his medication regimen. There was no evidence of any suicidality or homicidality on the inpatient unit. The patient remained in good behavioral control. Charting indicates that the patient has been sleeping and eating well. On the day of discharge: Patient seen and examined with counselor and nurse. Chart reviewed. Case discussed with nursing staff and counselor. Patient has been no behavioral problem over the weekend per nursing staff. On my examination today , the patient is in good spirits. He feels ready for discharge from the inpatient psychiatric unit today. He once again says that he feels much improved on less psychotropic medications. Mood remains stable and there is no depressive or hypomanic/manic symptomatology. He denies any suicidal or homicidal ideation, intent or plan on direct questioning. He denies any audiovisual hallucinations, and I can elicit no delusional material. He denies side effects from medications. He has no physical complaints. Weighing the acute, chronic, and protective factors and based on the available evidence, I nailing machine operator automatic to a reasonable degree of medical certainty that the patient is at low imminent risk of harm to self or others from a mental illness as defined under the Cotter act and his level of function is adequate for outpatient care. Patient will be discharged today once cleared by the neurologist in stable condition with psychiatric follow-up as arranged by counselor. The patient is also to follow-up with primary care and also with neurology. I counseled the patient that he has some laboratory work from the neurologist that is still outstanding, and he must call the lab to obtain these results and convey them to his outpatient neurologist, and he has agreed to do this. I reminded the patient to abstain from substances of abuse and also to return to the psychiatric emergency room for any concerning psychiatric symptoms. Results Blood Pressure 104 / 56 Vital Signs Date Time Temp Pulse Resp B/P Pulse Ox O2 Delivery O2 Flow Rate FiO2 10/29/16 06:10 97.2 52 18 104/56 99 Item Value Date Time Erythrocyte Sedimentation Rate 7 mm/hr 10/26/16 1100 Vitamin B12 Level 304 PG/ML 10/26/16 0846 Free Thyroxine 1.16 NG/DL 10/26/16 0846 Thyroid Stimulating Hormone 3rd Gen 0.938 uIU/ML 10/26/16 0846 Anti-Nuclear Antibody Screen NEG 10/26/16 0846 Rapid Plasma Reagin NON-REACTIVE 10/26/16 0846 Summary of Procedures EEG was read as mild slowing without any epileptiform activity. Imaging Last Impressions Brain MRI 10/26/161946 Signed Impressions: Service Date/Time: Wednesday, October 26, 2016 16:06 - CONCLUSION: Normal examination for a patient of this age. Oscar Villanueva MD Pending results at discharge: Yes (methylmalonic acid level and thiamine level) Medications # of Antipsychotic meds at D/C: 1 Approp Antipsych med options 1 - Minimum of three failed multiple trials of monotherapy. 2 - Documented plan to taper to monotherapy due to previous use of multiple meds OR cross-taper in progress at D/C. 3 - Documentation of augmentation of Clozapine. 4 - Justification other than those listed in allowable values 1-3, document here : Discharge Discharge Date: Oct 29, 2016 Discharge Diagnosis: (1) Schizoaffective disorder Diagnosis: Principal (stable) ICD Code: F25.9 GAF on discharge is 55. Mental Status Exam at Disch Patient is casually dressed. He is well groomed. He is awake and alert and oriented 3. No evidence of delirium. No motoric abnormalities noted. Speech is within normal limits for rate, tone and volume. Language and fund of knowledge seem average. Focus and concentration intact. Memory grossly intact on clinical exam. Mood is fair and affect is full and reactive. Thought process linear. No loosening of associations. No delusions elicited. Denies audiovisual hallucinations. Denies suicidal or homicidal ideation, intent or plan. Insight and judgment are fair. Pt Condition on Discharge: Stable Discharge Disposition: Discharge Home Discharge Instructions Diet Instructions: As Tolerated, No Restrictions Activities you can perform: Weight Bearing as [place] Scheduled Appointment: as per counselor's notes New Medications: Paliperidone Palmitate Inj (Invega Sustenna Inj) 156 Mg/Ml Inj 156 MG IM Q28D Receive next dose of Invega Sustenna as ordered by your outpatient provider on 11/19/16. Schizophrenia #1 Ref 0 VIAL Discontinued Medications: Carboxymethylcellulose Sodium Opth Drops (Refresh Tears Opth Drops) 0.5% Drops 1 DROP EACH EYE Q6H PRN EYE IRRITATION #1 BOTTLE Ibuprofen (Ibuprofen) 600 Mg Tab 600 MG PO Q6H PRN HEADACHE #30 TAB Lisinopril (Lisinopril) 20 Mg Tab 20 MG PO DAILY #30 TAB Loxapine (Loxapine) 10 Mg Cap 10 MG PO 2 po bid health #120 Ref 0 CAP Paliperidone Palmitate Inj (Invega Trinza Inj) 819 Mg/2.625 Ml Inj 819 MG IM Q90D Schizophrenia #1 Ref 0 VIAL Paroxetine (Paroxetine) 30 Mg Tab 30 MG PO DAILY #30 Ref 0 TAB Paroxetine (Paxil) 30 Mg Tab 30 MG PO DAILY health #30 Ref 0 TAB Discharge Time <= 30 minutes Discharge/Advance Care Plan Health Problems: (1) Schizoaffective disorder Goals to promote your health * To prevent worsening of your condition and complications * To maintain your health at the optimal level Directions to meet your goals Take your medications as prescribed Follow your dietary instruction Follow activity as directed Keep your appointments as scheduled Take your immunizations and boosters as scheduled If your symptoms worsen call your PCP, if no PCP go to Urgent Care Center or Emergency Room For 12/11 questions related to your inpatient stay or results of tests pending at discharge, please contact Dr. Rj Padron at Smoking is Dangerous to Your Health. Avoid second hand smoking Problem Qualifiers (1) Schizoaffective disorder: Qualified Code: F25.8 - Other schizoaffective disorders Rj Padron MD Oct 29, 2016 09:48
[2016-10-29 10:00] LABS: RAPID PLASMA REAGIN SCREEN NON-REACTIVE (NON-REACTVE)
[2016-10-29 11:44] LABS: ANA SCREEN NEG (NEG)
== END 2016-10-29 12:25 | disposition home or self-care (01) | DRG 885 ==
LOC: H270 04:20
PROVIDERS: ADMIT Psychiatry & Neurology Psychiatry; ATTEND Psychiatry & Neurology Psychiatry
DX: F25.9 Schizoaffective disorder, unspecified (principal); I10 Essential (primary) hypertension; T46.4X1A Poisoning by angiotensin-converting-enzyme inhibitors, accidental (unintentional), initial encounter; E78.00 Pure hypercholesterolemia, unspecified; F17.200 Nicotine dependence, unspecified, uncomplicated; Z79.899 Other long term (current) drug therapy
CPT/HCPCS: 70553; 82607; 83921; 84425; 84439; 84443; 85652; 86038; 86592; 95819; A9579